=== PATIENT | male | born 1990 | race Caucasian/White ===

== ENCOUNTER 2017-11-13 09:18 | Emergency (ER) | END 2017-11-13 12:01 | disposition home or self-care (01) ==

== ENCOUNTER 2017-11-23 12:16 | Emergency (ER) | END 2017-11-23 13:25 | disposition home or self-care (01) ==

== ENCOUNTER 2018-02-12 21:12 | Emergency (ER) | END 2018-02-12 22:13 | disposition home or self-care (01) ==

== ENCOUNTER 2018-09-22 22:09 | Emergency (ER) | payer BC, MEDICAID ==
[~2018-09-22] VITALS: Ht 165.1 cm; Wt 78.0 kg
[~2018-09-22 22:09] MED LIST: DENIES; IBUP-1542 PO; ONDA4TAB14 PO
[2018-09-22 22:11] VITALS: Ht 165.1 cm; Wt 78.0 kg
--- NOTE | 2018-09-23 01:52 | ERD ---
ER Documentation Chief Complaint Chief Complaint right abdominal pain since this am HPI 28-year-old male presents here to emergency department for complaints of right lower quadrant abdominal pain that started this morning, describes the pain as sharp pain, 6/10 scale, not better or worse with anything, denies any hematuria or dysuria. Patient denies any fever or chills. Patient denies any flank pain. ROS All systems reviewed and are negative except as per history of present illness. Medications Home Meds Active Scripts Ibuprofen* (Motrin*) 600 Mg Tab, 600 MG PO Q6, #30 TAB Prov:BATSHEVA TEE PA-C 02/12/18 Ondansetron (Ondansetron Odt) 4 Mg Tab.rapdis, 4 MG PO Q6H PRN for NAUSEA AND/OR VOMITING, #10 TAB Prov:JAQUELINE MÉNDEZ PA-C 11/13/17 Reported Medications [Denies] No Conflict Check 09/30/10 Allergies Allergies: Coded Allergies: No Known Allergies (Verified Allergy, Mild, 10/24/10) PMhx/Soc History of Surgery: No Anesthesia Reaction: No Hx Neurological Disorder: No Hx Respiratory Disorders: Yes Hx Psychiatric Problems: No Hx Miscellaneous Medical Probl: No Hx Alcohol Use: Yes (3-4 x per month) Hx Substance Use: No Hx Tobacco Use: No FmHx Family History: No diabetes, No coronary disease, No other Physical Exam Vitals Vital Signs Date Temp Pulse Resp B/P (MAP) Pulse Ox O2 O2 Flow FiO2 Time Delivery Rate 09/22/18 97.8 88 18 137/71 97 22:11 (93) Physical Exam GENERAL: The patient is well developed and appropriate for usual state of health, in no apparent distress. CHEST: Clear to auscultation bilaterally. There are no rales, wheezes or rhonchi. HEART: Regular rate and rhythm. No murmurs, clicks, rubs or gallops. No S3 or S4. ABDOMEN: Soft, nontender and nondistended. Good bowel sounds. No rebound or guarding. No gross peritonitis. No gross organomegaly or masses. No Mccain sign or McBurney point tenderness. BACK: No midline or flank tenderness. EXTREMITIES: Equal pulses bilaterally. There is no peripheral clubbing, cyanosis or edema. No focal swelling or erythema. Full range of motion. Grossly neurovascularly intact. NEURO: Alert and oriented. Cranial nerves 2-12 intact. Motor strength in all 4 extremities with 5/5 strength. Sensation grossly intact. Normal speech and gait. SKIN: There is no apparent rash or petechia. The skin is warm and dry. HEMATOLOGIC AND LYMPHATIC: There is no evidence of excessive bruising or lymphedema. No gross cervical, axillary, or inguinal lymphadenopathy. Result Diagram: 09/23/18 0206 09/23/18 0206 Results 24 hrs Laboratory Tests Test 09/23/18 02:02 09/23/18 02:06 Urine Color YELLOW Urine Clarity CLEAR Urine pH 7.0 Urine Specific [place] 1.027 Urine Ketones NEGATIVE mg/dL Urine Nitrite NEGATIVE mg/dL Urine Bilirubin NEGATIVE mg/dL Urine Urobilinogen NEGATIVE mg/dL Urine Leukocyte Esterase NEGATIVE [place] Urine Hemoglobin NEGATIVE mg/dL Urine Glucose NEGATIVE mg/dL Urine Total Protein NEGATIVE mg/dl White Blood Count 9.3 10^3/ul Red Blood Count 4.92 10^6/ul Hemoglobin 13.1 g/dl Hematocrit 41.1 % Mean Corpuscular Volume 83.5 fl Mean Corpuscular Hemoglobin 26.6 pg Mean Corpuscular Hemoglobin Concent 31.9 g/dl Red Cell Distribution Width 13.5 % Platelet Count 245 10^3/UL Mean Platelet Volume 11.0 fl Immature Granulocytes % 0.200 % Neutrophils % 57.3 % Lymphocytes % 29.2 % Monocytes % 10.4 % Eosinophils % 2.5 % Basophils % 0.4 % Nucleated Red Blood Cells % 0.0 /100WBC Immature Granulocytes # 0.020 10^3/ul Neutrophils # 5.4 10^3/ul Lymphocytes # 2.7 10^3/ul Monocytes # 1.0 10^3/ul Eosinophils # 0.2 10^3/ul Basophils # 0.0 10^3/ul Nucleated Red Blood Cells # 0.0 10^3/ul Sodium Level 141 mmol/L Potassium Level 3.9 mmol/L Chloride Level 103 mmol/L Carbon Dioxide Level 28 mmol/L Anion Gap 10 Blood Urea Nitrogen 15 mg/dl Creatinine 0.93 mg/dl Est Glomerular Filtrat Rate mL/min > 60 mL/min Glucose Level 104 mg/dl Calcium Level 9.6 mg/dl Total Bilirubin 0.1 mg/dl Direct Bilirubin 0.00 mg/dl Indirect Bilirubin 0.1 mg/dl Aspartate Amino Transf (AST/SGOT) 26 IU/L Alanine Aminotransferase (ALT/SGPT) 17 IU/L Alkaline Phosphatase 83 IU/L Total Protein 8.5 g/dl Albumin 4.8 g/dl Globulin 3.70 g/dl Albumin/Globulin Ratio 1.29 Lipase 142 U/L PROCEDURE: CT Abdomen and Pelvis without contrast. CLINICAL INDICATION: Abdominal pain TECHNIQUE: CT scan of the abdomen and pelvis without contrast was performed on a multidetector high-resolution CT scanner. The patient was scanned without intravenous contrast. Coronal and sagittal reformatted images were obtained from the axial source images. Images were reviewed on a high-resolution PACS workstation. The total exam CTDI equals 10.21 mGy and the total exam DLP equals 611.85 mGy-cm. One or more the following dose reduction techniques were utilized: Automated exposure control, adjustment of the mA and / or kV according to patient's size, or use of iterative reconstruction technique. DICOM images are available. COMPARISON: None. FINDINGS: Lung bases are clear. No pneumoperitoneum is seen. No abnormalities seen in the liver. The gallbladder is contracted. This is nonspecific and could be due to nonfasting state. Food material/debris and air seen in the stomach. No abnormalities seen in the spleen, pancreas, adrenals or kidneys. No biliary dilatation is seen. No abdominal aortic aneurysm is seen. Very small umbilical hernia containing fat only. No renal or ureteral stone is seen. No abnormality seen in the bladder or reproductive organs. Minimal subcutaneous edema posteriorly. No ascites is seen. There is appearance of epiploic appendagitis in the distal ascending colon. The colon is otherwise unremarkable. There is no evidence of acute appendicitis seen. The appendix is not identified. No dilated small bowel loops are seen. There is the appearance of an increase in number of nonenlarged lymph nodes in the mesentery of the right lower quadrant of the abdomen which could be secondary to mesenteric adenitis. Mild degenerative disc changes at L5-S1. IMPRESSION: Appearance of epiploic appendagitis in the distal ascending colon. Appearance of an increase in number of nonenlarged lymph nodes in the mesentery of the right lower quadrant of the abdomen which could be secondary to mesenteric adenitis. Please see above. RPTAT: HJES .Edwin Verdin MD, MD Date Time Electronically viewed and signed by .Edwin Verdin MD, MD on 09/23/2018 02:54 .S/ CC: NICOL CARDONA NP [id number] Procedures/MDM Medical Decision Making: Symptoms consistent with epiploic appendage otitis and mesenteric adenitis. No symptoms of any appendicitis, no abscess. No peritonitis. No perforation. There is low suspicion for abdominal emergencies at this time. Patients abdominal exam is normal at this time. Patients radiology exam does not show any abdominal emergencies at this time. There is low suspicion for appendicitis, cholecystitis, abdominal aortic aneurysms or peritonitis at this time. There is low suspicion for sepsis. Patient appears well and is hemodynamically stable. Disposition: Home. Condition: Stable Prescription [place], Zofran and Ibuprofen Instructions: Patient is advised to take medications as prescribed. Patient is advised to rest, increase fluid intake and do brat diet for next 1-2 days and progress as tolerated. Patient is advised that if symptoms are worse, severe abdominal pain, uncontrolled vomiting, high fever, severe flank pain, worst signs and symptoms, to return to the emergency department immediately. Otherwise, patient can follow up with primary care doctor in 5-7 days. Disclaimer: Inadvertent spelling and grammatical errors are likely due to EHR/dictation software use and do not reflect on the overall quality of patient care. Also, please note that the electronic time recorded on this note does not necessarily reflect the actual time of the patient encounter. Departure Diagnosis: Primary Impression: Epiploic appendagitis Additional Impression: Mesenteric adenitis Condition: Stable Patient Instructions: Adenitis, Mesenteric Additional Instructions: Patient is advised to take medications as prescribed. Patient is advised to rest, increase fluid intake and do brat diet for next 1-2 days and progress as tolerated. Patient is advised that if symptoms are worse, severe abdominal pain, uncontrolled vomiting, high fever, severe flank pain, worst signs and symptoms, to return to the emergency department immediately. Otherwise, patient can foll ow up with primary care doctor in 5-7 days. NICOL CARDONA NP Sep 23, 2018 01:52
[2018-09-23] MEDS ORDERED: IBUP-1542 PO (04:04)
[2018-09-23] MEDS ORDERED: ONDA4TAB14 PO (04:04)
[2018-09-23] MEDS ORDERED: HYDR-4011 PO (04:04)
[2018-09-23 04:31] VITALS: BP 155/65; PULSE 75; RESP 20
== END 2018-09-23 04:32 | disposition home or self-care (01) ==
LOC: FTE 22:09
DX: K38.8 Other specified diseases of appendix (principal); I88.0 Nonspecific mesenteric lymphadenitis
CPT/HCPCS: 36415; 74176; 80053; 81003; 83690; 85025; Z7502